=== PATIENT | male | born 1975 | race African-American/Black ===

== ENCOUNTER 2020-09-08 23:05 | Emergency (ER) | payer MEDICARE, OTHER ==
[~2020-09-08] VITALS: Ht 175.3 cm; Wt 72.6 kg
[2020-09-09] MEDS ORDERED: LIDOCAINE 1% HCL (LOCAL ANESTH.) INJ 20ML MDV ID ONE (01:15)
[2020-09-09 01:26] VITALS: BP 120/60
== END 2020-09-09 01:50 | disposition home or self-care (01) ==
LOC: ER 23:09 → EDSEX 23:09 → ER 09-09 01:50
DX: L02.214 Cutaneous abscess of groin (principal); F17.210 Nicotine dependence, cigarettes, uncomplicated; Z85.6 Personal history of leukemia
CPT/HCPCS: 10060; 99283; C1887; J2001

== ENCOUNTER 2020-10-05 08:44 | Inpatient (IN) | payer MEDICARE, OTHER ==
[~2020-10-05] VITALS: Ht 175.3 cm; Wt 76.9 kg
[2020-10-05] MEDS ORDERED: CLINDAMYCIN 900MG IV 50 ML IV ONE (09:30)
[2020-10-05] MEDS ORDERED: cefTRIAXone 1GM/50ML D5W 50 ML IV ONE (09:30)
[2020-10-05 10:16] LABS: Basophils # (auto) 0.1 10 ^3/uL (0-0.2); Basophils % (auto) 1.2 % (0.0-2.0); Eosinophils # (auto) 0.1 10 ^3/uL (0-0.8); Eosinophils % (auto) 2.4 % (0.0-7.0); Hematocrit 38.4 % (41.0-53.0); Hemoglobin 13.1 g/dL (13.5-17.5); Lymphocytes # (auto) 1.7 10 ^3/uL (0.4-5.4); Lymphocytes % (auto) 29.9 % (10.0-50.0); Mean Corpuscular Hemoglobin 32.5 pg (28.0-32.0); Mean Corpuscular Hgb Conc. 34.1 g/dL (32.0-36.0); Mean Corpuscular Volume 95.1 fL (80.0-100.0); Monocytes # (auto) 0.6 10 ^3/uL (0-1.3); Monocytes % (auto) 10.5 % (0.0-12.0); Neutrophils # (auto) 3.2 10 ^3/uL (1.6-8.6); Nucleated Red Blood Cells % 0.1 %; Red Blood Cells 4.04 10^6/uL (4.5-5.90); Red Cell Distribution Width 13.7 % (11.8-14.3); White Blood Cell 5.7 10^3/uL (4.4-10.8)
[2020-10-05 10:32] LABS: Albumin 3.4 g/dL (3.4-5.0); Calcium 8.8 mg/dL (8.5-10.1); Potassium 4.1 mmol/L (3.5-5.1)
[2020-10-05 10:35] LABS: BUN/Creatinine Ratio 12.2; Bilirubin, Total 0.1 mg/dL (0.2-1.0); Total Protein 6.6 g/dL (6.4-8.2)
[2020-10-05] MEDS ORDERED: ACETAMINOPHEN 325 MG TAB PO PRN (11:00)
[2020-10-05] MEDS ORDERED: ONDANSETRON HCL 4 MG/2 ML VIAL IV PRN (11:00)
[2020-10-05] MEDS ORDERED: LORazepam 0.5 MG TAB PO PRN (11:00)
[2020-10-05] MEDS ORDERED: hydrALAZINE HCL 20 MG/ML VL IV PRN (11:00)
[2020-10-05] MEDS ORDERED: ALUM & MAG HYDROX-SIMETH LIQ(MAALOX) 30 ML PO PRN (11:00)
[2020-10-05] MEDS ORDERED: BACLOFEN 10 MG TAB PO PRN (11:00)
[2020-10-05] MEDS ORDERED: MORPHINE SULFATE INJECTION 2 MG/2 ML SYRG IV PRN (11:00)
[2020-10-05] MEDS ORDERED: DOCUSATE SOD 100 MG CAP PO PRN (11:00)
[2020-10-05] MEDS ORDERED: NITROGLYCERIN 0.4 MG SL TAB SL PRN (11:00)
[2020-10-05] MEDS ORDERED: IOHEXOL 300 MG/ML 100ML BOTTLE IJ ONE (11:12)
[2020-10-05] MEDS ORDERED: LATA0.0019 EACHEYE (11:25)
[2020-10-05] MEDS ORDERED: OXYC325T14 PO (11:25)
[2020-10-05] MEDS ORDERED: ALP15OS EACHEYE (11:25)
[2020-10-05] MEDS ORDERED: TADA20TA47 PO (11:25)
[2020-10-05] MEDS ORDERED: SILO4CAP3 PO (11:25)
[2020-10-05] MEDS ORDERED: TIMO0.5S66 EACHEYE (11:25)
[2020-10-05] MEDS ORDERED: BACL10TA PO (11:25)
[2020-10-05 13:09] LABS: Cholesterol 173 mg/dL (< 200); HDL Cholesterol 62 mg/dL (40-59); LDL Cholesterol 96 mg/dL (< 100); Triglycerides 74 mg/dL (< 150)
[2020-10-05 13:12] LABS: Urine Bacteria NONE SEEN /hpf (None Seen); Urine Blood Negative /uL (Negative); Urine Mucus FEW (None Seen); Urine Specific Gravity 1.014 (1.001-1.035); Urine WBC 15 /hpf (0 - 3)
[2020-10-05] MEDS: MORPHINE SULFATE INJECTION 2 MG/2 ML SYRG IV PRN (13:51)
[2020-10-05] MEDS: CLINDAMYCIN 600MG IV 50 ML IV SCH ×2 (14:00→23:45)
[2020-10-05 14:25] LABS: Alcohol, Urine < 3.0 mg/dL (0-10); Amphetamine Screen, Urine NEGATIVE (NEGATIVE); Barbiturate Scree,Urine NEGATIVE (NEGATIVE); Benzodiazephine Screen, Urine NEGATIVE (NEGATIVE); Cocaine Screen, Urine NEGATIVE (NEGATIVE); Opiate Scree,Urine NEGATIVE (NEGATIVE); Phencyclidine Screen, Urine NEGATIVE (NEGATIVE)
[2020-10-05 14:34] LABS: Cannabinoid Screen, Urine POSITIVE (NEGATIVE)
[2020-10-05] MEDS: SODIUM CHLORIDE 0.9% 1,000 ML IV SCH ×2 (16:02→18:47)
[2020-10-05] MEDS: TAMSULOSIN HYDROCHLORIDE 0.4 MG CAP PO SCH (20:07)
[2020-10-05] MEDS: LATANOPROST 0.005 % OPTH(EYE) SOL 2.5ML EACHEYE SCH (22:00)
[2020-10-05] MEDS: BRIMONIDINE 0.2% OPTH Soln 5ml EACHEYE SCH (22:00)
[2020-10-05] MEDS: HYDROcodone-ACET 5/325MG TAB PO PRN (23:44)
[2020-10-06] MEDS: CLINDAMYCIN 600MG IV 50 ML IV SCH ×3 (06:30→21:53)
[2020-10-06] MEDS: MORPHINE SULFATE INJECTION 2 MG/2 ML SYRG IV PRN ×2 (07:04→18:46)
[2020-10-06] MEDS: ENOXAPARIN SOD 40 MG/0.4 ML SYRINGE SC SCH (10:00)
[2020-10-06] MEDS: risperiDONE 1 MG TAB PO SCH (10:25)
[2020-10-06] MEDS: cefTRIAXone 1GM/50ML D5W 50 ML IV SCH (10:25)
[2020-10-06] MEDS: BRIMONIDINE 0.2% OPTH Soln 5ml EACHEYE SCH ×2 (10:33→21:53)
[2020-10-06] MEDS: SODIUM CHLORIDE 0.9% 1,000 ML IV SCH (14:17)
[2020-10-06 15:00] VITALS: BP 143/82
[2020-10-06] MEDS: HYDROcodone-ACET 5/325MG TAB PO PRN (16:19)
[2020-10-06 17:00] VITALS: BP 143/82
[2020-10-06] MEDS: TAMSULOSIN HYDROCHLORIDE 0.4 MG CAP PO SCH (18:00)
[2020-10-06] MEDS: LATANOPROST 0.005 % OPTH(EYE) SOL 2.5ML EACHEYE SCH (21:53)
[2020-10-06 22:00] VITALS: BP 137/91
[2020-10-07] MEDS: SODIUM CHLORIDE 0.9% 1,000 ML IV SCH (03:15)
[2020-10-07] MEDS: CLINDAMYCIN 600MG IV 50 ML IV SCH (06:01)
[2020-10-07] MEDS: ENOXAPARIN SOD 40 MG/0.4 ML SYRINGE SC SCH (08:50)
[2020-10-07] MEDS: risperiDONE 1 MG TAB PO SCH (08:50)
[2020-10-07] MEDS: BRIMONIDINE 0.2% OPTH Soln 5ml EACHEYE SCH (08:51)
[2020-10-07] MEDS: cefTRIAXone 1GM/50ML D5W 50 ML IV SCH (08:51)
[2020-10-07] MEDS ORDERED: TIMOLOL MAL 0.5% OPTH(EYE) SOL 5ML EACHEYE SCH (10:00)
[2020-10-07] MEDS ORDERED: SILODOSIN 4MG CAPSULE PO SCH (12:00)
== END 2020-10-07 12:47 | disposition home or self-care (01) | DRG 603 ==
LOC: ER 08:44 → OVERFLOW 10:57 → CENTRAL 10-06 14:43
PROVIDERS: ADMIT Hospitalist; ATTEND Family Medicine
DX: L03.311 Cellulitis of abdominal wall (principal); Z94.81 Bone marrow transplant status; L02.211 Cutaneous abscess of abdominal wall; I10 Essential (primary) hypertension; H40.9 Unspecified glaucoma; E78.5 Hyperlipidemia, unspecified; F12.90 Cannabis use, unspecified, uncomplicated; Z20.822 Contact with and (suspected) exposure to COVID-19; T63.391A Toxic effect of venom of other spider, accidental (unintentional), initial encounter; Y92.89 Other specified places as the place of occurrence of the external cause; Z85.6 Personal history of leukemia
CPT/HCPCS: 36415; 74176; 80053; 80061; 80307; 81001; 83036; 84484; 85025; 87040; 87086; 87426; 96365; 96368; 96375; G0378; J0696; J2405; J3490